=== PATIENT | female | born 1930 | race Caucasian/White ===

== ENCOUNTER 2018-12-09 20:00 | Emergency (ER) | payer MEDICARE ==
[2018-12-09] MEDS ORDERED: Sodium Chloride 0.9% 500 ML IV ONE (20:09)
--- NOTE | 2018-12-09 20:15 | EDM.PDOC ---
ED HPI GENERAL MEDICAL PROBLEM - General Chief Complaint: Possible Sepsis Stated Complaint: FEVER Time Seen by Provider: 12/09/18 20:11 Source of Information: Reports: Patient, Family History Limitations: Reports: No Limitations - History of Present Illness INITIAL COMMENTS - FREE TEXT/NARRATIVE: Presents with family due to generalized malaise x 24-36 hours. Patient states " I just don't feel well." Has been waking up in the middle of the night with panic attacks/fast breathing. Fentanyl patch fell off over the weekend, was replaced 2 days ago. She has had nasal congestion, no cough. Has had chills, no fever. Denies chest pain or shortness of breath. Has h/o arthritis, HTN, hyperlipemia, no h/o CAD or TIA/CVA. Generalized Pain Score (Numeric/FACES): 4 - Related Data Allergies Allergy/AdvReac Type Severity Reaction Status Date / Time No Known Allergies Allergy Verified 08/10/16 14:43 Home Meds: Home Meds FLUoxetine [PROzac] 20 mg PO DAILY 08/07/16 [History] Losartan/Hydrochlorothiazide [Losartan-HCTZ 100-12.5 MG] 1 tab PO DAILY [History] Simvastatin 10 mg PO BEDTIME 08/07/16 [History] amLODIPine [Norvasc] 10 mg PO DAILY 08/07/16 [History] predniSONE [Prednisone] 7.5 mg PO DAILY 08/07/16 [History] rOPINIRole [Requip] 0.25 mg PO BEDTIME 08/07/16 [History] LORazepam [Ativan] 0.5 mg PO BEDTIME PRN #10 tablet 12/09/18 [Rx] Mirtazapine 7.5 mg PO BEDTIME 12/09/18 [History] Potassium Chloride [Klor-Con Sprinkle] 10 meq PO TID 12/09/18 [History] Pregabalin [Lyrica] 150 mg PO BID 12/09/18 [History] fentaNYL [Duragesic] 25 mcg TD Q72H 12/09/18 [History] Past Medical History HEENT History: Reports: Other (See Below) Other HEENT History: wears glasses Cardiovascular History: Reports: High Cholesterol, Hypertension. 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 Denies: CVA, TIA Other Neuro History: restless leg Psychiatric History: Reports: Depression Endocrine/Metabolic History: Reports: Obesity/BMI 30+ - Infectious Disease History Infectious Disease History: Reports: Chicken Pox - Past Surgical History HEENT Surgical History: Reports: Cataract Surgery Female Surgical History: Reports: Hysterectomy, Salpingo-Oophorectomy Neurological Surgical History: Reports: Other (See Below) Musculoskeletal Surgical History: Reports: Knee Replacement, Shoulder Surgery, Other (See Below) Social & Family History - Family History Family Medical History: Noncontributory - Tobacco Use Tobacco Use Within Last Twelve Months: No - Caffeine Use Caffeine Use: Reports: Coffee ED ROS GENERAL - Review of Systems Review Of Systems: ROS reveals no pertinent complaints other than HPI. ED EXAM, GENERAL - Physical Exam Exam: Not Obtained Exam Limited By: No Limitations General Appearance: Alert, WD/WN, No Apparent Distress Eye Exam: Bilateral Eye: EOMI, PERRL Ears: Normal External Exam Nose: Normal Inspection Throat/Mouth: No Airway Compromise, Other (mucosa moist) Head: Atraumatic, Normocephalic Neck: Normal Inspection, Supple Respiratory/Chest: No Respiratory Distress, Lungs Clear, Normal Breath Sounds Cardiovascular: Regular Rate, Rhythm, No Edema, No Murmur GI/Abdominal: Normal Bowel Sounds, Soft, No Distention, Tender (generalized) Back Exam: Full Range of Motion Extremities: Normal Range of Motion Neurological: Alert, Normal Cognition, No Motor/Sensory Deficits Psychiatric: Normal Affect, Normal Mood Skin Exam: Warm, Dry, Intact EKG INTERPRETATION EKG Date: 12/09/18 Time: 20:08 Rhythm: NSR Rate (Beats/Min): 98 Spencer: Normal P-Wave: Present QRS: Normal ST-T: Normal QT: Prolonged Course - Vital Signs Last Recorded V/S: Last Vital Signs Temp 37.1 C 12/09/18 20:00 Pulse 93 12/09/18 21:26 Resp 20 12/09/18 21:26 BP 162/72 H 12/09/18 21:26 Pulse Ox 93 L 12/09/18 21:26 - Orders/Labs/Meds Orders: Active Orders 24 hr Category Date Time Status EKG Documentation Completion [RC] ASDIRECTED Care 12/09/18 20:01 Active Hernandez Catheter Insertion [Insert Urinary Catheter] [OM. Care 12/09/18 20:30 Ordered PC] Q24H Urinary Catheter Assessment [RC] QSHIFT Care 12/09/18 20:16 Active CXR [Chest 1V Frontal] [CR] Stat Exams 12/09/18 20:09 Taken Chest Abdomen Pelvis w Cont [CT] Stat Exams 12/09/18 21:29 Taken CULTURE BLOOD [BC] Urgent Lab 12/09/18 20:30 Received CULTURE BLOOD [BC] Urgent Lab 12/09/18 20:35 Received Sodium Chloride 0.9% [Saline Flush] Med 12/09/18 20:09 Active 10 ml FLUSH ASDIRECTED PRN Blood Culture x2 Reflex Set [OM.PC] Urgent Oth 12/09/18 20:08 Ordered Saline Lock Insert [OM.PC] Routine Oth 12/09/18 20:09 Ordered Code Status [Resuscitation Status] Stat Resus Stat 12/09/18 20:53 Ordered EKG 12 Lead [EK] Stat Ther 12/09/18 20:01 Ordered Medication Orders Sodium Chloride (Saline Flush) 10 ml FLUSH ASDIRECTED PRN PRN Reason: Keep Vein Open Last Admin: 12/09/18 23:05 Dose: 10 ml Admin: 12/09/18 20:33 Dose: 10 ml Labs: Laboratory Tests 12/09/18 12/09/18 12/09/18 Range/Units 20:01 20:30 20:30 WBC 7.7 (4.5-12.0) X10-3/uL RBC 5.01 (3.23-5.20) x10(6)uL Hgb 15.1 (11.5-15.5) g/dL Hct 45.2 (30.0-51.3) % MCV 90.2 (80-96) fL MCH 30.1 (27.7-33.6) pg MCHC 33.4 (32.2-35.4) g/dL RDW 12.5 (11.5-15.5) % Plt Count 323 (125-369) X10(3)uL MPV 8.0 (7.4-10.4) fL Neut % (Auto) 71.9 (46-82) % Lymph % (Auto) 14.4 (13-37) % Republic % (Auto) 9.9 (4-12) % Eos % (Auto) 1 (1.0-5.0) % Baso % (Auto) 3 H (0-2) % Neut # (Auto) 5.5 (1.6-8.3) # Lymph # (Auto) 1.1 (0.6-5.0) # Republic # (Auto) 0.8 (0.0-1.3) # Eos # (Auto) 0.1 (0.0-0.8) # Baso # (Auto) 0.2 (0.0-0.2) # PT 10.3 (8.7-11.1) INR 1.06 (0.89-1.13) D-Dimer, Quantitative (0.0-0.59) mg/LFEU Sodium (135-145) mmol/L Potassium (3.5-5.3) mmol/L Chloride (100-110) mmol/L Carbon Dioxide (21-32) mmol/L BUN (7-18) mg/dL Creatinine (0.55-1.02) mg/dL Est Cr Clr Drug Dosing mL/min Estimated GFR (MDRD) (>60) BUN/Creatinine Ratio (9-20) Glucose (80-116) mg/dL Lactic Acid (0.4-2.2) mmol/L Calcium (8.6-10.2) mg/dL Total Bilirubin (0.1-1.3) mg/dL AST (5-25) IU/L ALT (12-36) U/L Alkaline Phosphatase (56-112) IU/L Troponin I (<0.017-0.056) ng/mL Total Protein (6.0-8.0) g/dL Albumin (3.2-4.6) g/dL Globulin g/dL Albumin/Globulin Ratio Amylase (25-115) U/L Urine Color Yellow (YELLOW) Urine Appearance Clear (CLEAR) Urine pH 6.0 (5.0-6.5) Ur Specific [place] 1.020 (1.010-1.025) Urine Protein Negative (NEGATIVE) mg/dL Urine Glucose (UA) Normal (NORMAL) mg/dL Urine Ketones Negative (NEGATIVE) mg/dL Urine Occult Blood Moderate H (NEGATIVE) Urine Nitrite Negative (NEGATIVE) Urine Bilirubin Negative (NEGATIVE) Urine Urobilinogen Normal (NEGATIVE) mg/dL Ur Leukocyte Esterase Negative (NEGATIVE) Urine RBC 5-10 H (0-5) Urine WBC 0-5 (0-5) Ur Squamous Epith Cells Occasional (NS,R,O) Urine Bacteria Few H (NS) Urine Mucus Moderate H (NS) 12/09/18 12/09/18 12/09/18 Range/Units 20:30 20:30 20:30 WBC (4.5-12.0) X10-3/uL RBC (3.23-5.20) x10(6)uL Hgb (11.5-15.5) g/dL Hct (30.0-51.3) % MCV (80-96) fL MCH (27.7-33.6) pg MCHC (32.2-35.4) g/dL RDW (11.5-15.5) % Plt Count (125-369) X10(3)uL MPV (7.4-10.4) fL Neut % (Auto) (46-82) % Lymph % (Auto) (13-37) % Republic % (Auto) (4-12) % Eos % (Auto) (1.0-5.0) % Baso % (Auto) (0-2) % Neut # (Auto) (1.6-8.3) # Lymph # (Auto) (0.6-5.0) # Republic # (Auto) (0.0-1.3) # Eos # (Auto) (0.0-0.8) # Baso # (Auto) (0.0-0.2) # PT (8.7-11.1) INR (0.89-1.13) D-Dimer, Quantitative (0.0-0.59) mg/LFEU Sodium 141 (135-145) mmol/L Potassium 3.3 L (3.5-5.3) mmol/L Chloride 100 (100-110) mmol/L Carbon Dioxide 31 (21-32) mmol/L BUN 14 (7-18) mg/dL Creatinine 0.9 (0.55-1.02) mg/dL Est Cr Clr Drug Dosing 37.31 mL/min Estimated GFR (MDRD) 59 L (>60) BUN/Creatinine Ratio 15.6 (9-20) Glucose 119 H (80-116) mg/dL Lactic Acid 1.0 (0.4-2.2) mmol/L Calcium 9.4 (8.6-10.2) mg/dL Total Bilirubin 0.8 (0.1-1.3) mg/dL AST 21 D (5-25) IU/L ALT 29 D (12-36) U/L Alkaline Phosphatase 74 (56-112) IU/L Troponin I < 0.017 L (<0.017-0.056) ng/mL Total Protein 7.8 (6.0-8.0) g/dL Albumin 3.8 (3.2-4.6) g/dL Globulin 4.0 g/dL Albumin/Globulin Ratio 1.0 Amylase (25-115) U/L Urine Color (YELLOW) Urine Appearance (CLEAR) Urine pH (5.0-6.5) Ur Specific [place] (1.010-1.025) Urine Protein (NEGATIVE) mg/dL Urine Glucose (UA) (NORMAL) mg/dL Urine Ketones (NEGATIVE) mg/dL Urine Occult Blood (NEGATIVE) Urine Nitrite (NEGATIVE) Urine Bilirubin (NEGATIVE) Urine Urobilinogen (NEGATIVE) mg/dL Ur Leukocyte Esterase (NEGATIVE) Urine RBC (0-5) Urine WBC (0-5) Ur Squamous Epith Cells (NS,R,O) Urine Bacteria (NS) Urine Mucus (NS) 12/09/18 12/09/18 Range/Units 20:30 20:30 WBC (4.5-12.0) X10-3/uL RBC (3.23-5.20) x10(6)uL Hgb (11.5-15.5) g/dL Hct (30.0-51.3) % MCV (80-96) fL MCH (27.7-33.6) pg MCHC (32.2-35.4) g/dL RDW (11.5-15.5) % Plt Count (125-369) X10(3)uL MPV (7.4-10.4) fL Neut % (Auto) (46-82) % Lymph % (Auto) (13-37) % Republic % (Auto) (4-12) % Eos % (Auto) (1.0-5.0) % Baso % (Auto) (0-2) % Neut # (Auto) (1.6-8.3) # Lymph # (Auto) (0.6-5.0) # Republic # (Auto) (0.0-1.3) # Eos # (Auto) (0.0-0.8) # Baso # (Auto) (0.0-0.2) # PT (8.7-11.1) INR (0.89-1.13) D-Dimer, Quantitative 0.96 H (0.0-0.59) mg/LFEU Sodium (135-145) mmol/L Potassium (3.5-5.3) mmol/L Chloride (100-110) mmol/L Carbon Dioxide (21-32) mmol/L BUN (7-18) mg/dL Creatinine (0.55-1.02) mg/dL Est Cr Clr Drug Dosing mL/min Estimated GFR (MDRD) (>60) BUN/Creatinine Ratio (9-20) Glucose (80-116) mg/dL Lactic Acid (0.4-2.2) mmol/L Calcium (8.6-10.2) mg/dL Total Bilirubin (0.1-1.3) mg/dL AST (5-25) IU/L ALT (12-36) U/L Alkaline Phosphatase (56-112) IU/L Troponin I (<0.017-0.056) ng/mL Total Protein (6.0-8.0) g/dL Albumin (3.2-4.6) g/dL Globulin g/dL Albumin/Globulin Ratio Amylase 38 (25-115) U/L Urine Color (YELLOW) Urine Appearance (CLEAR) Urine pH (5.0-6.5) Ur Specific [place] (1.010-1.025) Urine Protein (NEGATIVE) mg/dL Urine Glucose (UA) (NORMAL) mg/dL Urine Ketones (NEGATIVE) mg/dL Urine Occult Blood (NEGATIVE) Urine Nitrite (NEGATIVE) Urine Bilirubin (NEGATIVE) Urine Urobilinogen (NEGATIVE) mg/dL Ur Leukocyte Esterase (NEGATIVE) Urine RBC (0-5) Urine WBC (0-5) Ur Squamous Epith Cells (NS,R,O) Urine Bacteria (NS) Urine Mucus (NS) Meds: Medications Generic Name Dose Route Start Last Admin Trade Name Nic PRN Reason Stop Dose Admin Sodium Chloride 10 ml 12/09/18 20:09 12/09/18 23:05 Saline Flush FLUSH 10 ml ASDIRECTED PRN Administration Keep Vein Open Discontinued Medications Generic Name Dose Route Start Last Admin Trade Name Nic PRN Reason Stop Dose Admin Sodium Chloride 500 mls @ 500 mls/hr 12/09/18 20:09 12/09/18 20:35 Normal Saline IV 12/09/18 21:08 500 mls/hr .BOLUS ONE Administration Iopamidol 100 ml 12/09/18 21:31 12/09/18 21:54 Isovue-370 (76%) IV 12/09/18 21:32 100 ml . DIRECTED ONE Administration Lorazepam 0.25 mg 12/09/18 22:51 12/09/18 23:00 Ativan IVPUSH 12/09/18 22:52 0.25 mg ONETIME ONE Administration - Radiology Interpretation Free Text/Narrative:: CTA Chest/Abd/Pelvis: No pulmonary emboli. Coronary artery atherosclerotic calcifications. Main pulmonary artery enlargement. Thyroid hypodense lesions. - Re-Assessments/Exams Free Text/Narrative Re-Assessment/Exam: 12/09/18 23:16 Patient feels better after Ativan 0.25mg IV. Departure - Departure Time of Disposition: 23:16 Disposition: DC/Tfer to SNF 03 Condition: Good Clinical Impression: Anxiety - Discharge Information *PRESCRIPTION DRUG MONITORING PROGRAM REVIEWED*: Yes *COPY OF PRESCRIPTION DRUG MONITORING REPORT IN PATIENT EDI: No Prescriptions: LORazepam [Ativan] 0.5 mg PO BEDTIME PRN #10 tablet PRN Reason: Anxiety Instructions: Generalized Anxiety Disorder, Adult Referrals: Deyanira Bach NP [Nurse Practitioner] - 2 Days Forms: ED Department Discharge Additional Instructions: Fill prescription for Ativan and take as needed for anxiety. Follow up with your primary physician in 2-3 days. - My Orders Last 24 Hours: My Active Orders 12/09/18 20:01 EKG Documentation Completion [RC] ASDIRECTED EKG 12 Lead [EK] Stat 12/09/18 20:08 Blood Culture x2 Reflex Set [OM.PC] Urgent 12/09/18 20:09 CXR [Chest 1V Frontal] [CR] Stat Sodium Chloride 0.9% [Saline Flush] 10 ml FLUSH ASDIRECTED PRN Saline Lock Insert [OM.PC] Routine 12/09/18 20:16 Urinary Catheter Assessment [RC] QSHIFT 12/09/18 20:30 Hernandez Catheter Insertion [Insert Urinary Catheter] [OM.PC] Q24H CULTURE BLOOD [BC] Urgent 12/09/18 20:35 CULTURE BLOOD [BC] Urgent 12/09/18 20:53 Code Status [Resuscitation Status] Stat 12/09/18 21:29 Chest Abdomen Pelvis w Cont [CT] Stat - Assessment/Plan Last 24 Hours: My Active Orders 12/09/18 20:01 EKG Documentation Completion [RC] ASDIRECTED EKG 12 Lead [EK] Stat 12/09/18 20:08 Blood Culture x2 Reflex Set [OM.PC] Urgent 12/09/18 20:09 CXR [Chest 1V Frontal] [CR] Stat Sodium Chloride 0.9% [Saline Flush] 10 ml FLUSH ASDIRECTED PRN Saline Lock Insert [OM.PC] Routine 12/09/18 20:16 Urinary Catheter Assessment [RC] QSHIFT 12/09/18 20:30 Hernandez Catheter Insertion [Insert Urinary Catheter] [OM.PC] Q24H CULTURE BLOOD [BC] Urgent 12/09/18 20:35 CULTURE BLOOD [BC] Urgent 12/09/18 20:53 Code Status [Resuscitation Status] Stat 12/09/18 21:29 Chest Abdomen Pelvis w Cont [CT] Stat
[2018-12-09] MEDS: Sodium Chloride 0.9% 10 ML Syringe FLUSH PRN ×2 (20:33→23:05)
[2018-12-09] MEDS ORDERED: Iopamidol 755 Mg/ML 100 ML Bottle IV ONE (21:31)
[2018-12-09] MEDS ORDERED: LORazepam 2 MG/ML SDV IVPUSH ONE (22:51)
[2018-12-09 23:30] VITALS: BP 149/87
--- NOTE | 2018-12-10 10:57 | CR ---
INDICATION: Weakness. CHEST: Portable AP upright view of the chest 12/09/18 was compared with and 10/18/08. 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 The heart appears enlarged, emphasized by the AP positioning and relatively poor inspiration. Full inspiration PA and lateral views of the chest may be helpful in that regard. The aorta is tortuous with calcification in the arch. The lungs are hyperaerated with somewhat flattened diaphragm leaves, suggesting COPD. No definite evidence of CHF or an active infiltrate or effusion was seen. However, there are some minimal heavy markings at the left costophrenic angle and left lung base, which could represent a minimal patchy pneumonia and should be correlated clinically. MTDD
== END 2018-12-09 23:24 ==
LOC: FB.ED 20:00
DX: F41.9 Anxiety disorder, unspecified (principal); E78.00 Pure hypercholesterolemia, unspecified; I10 Essential (primary) hypertension; F32.9 Major depressive disorder, single episode, unspecified; Z79.899 Other long term (current) drug therapy; Z79.01 Long term (current) use of anticoagulants
CPT/HCPCS: 36415; 51701; 71045; 71260; 74177; 80053; 81001; 82150; 83605; 84484; 85025; 85379; 85610; 87040; 93005; 96361; 96374; 99284-25; J2060; J7040; Q9967